=== PATIENT | male | born 1985 | race Two or more races ===

== ENCOUNTER 2019-09-10 11:14 | Emergency (ER) | payer OTHER, BC ==
[~2019-09-10] VITALS: Ht 180.3 cm; Wt 93.0 kg
[2019-09-10] MEDS ORDERED: ACETAMINOPHEN 325 MG TAB PO ONE ×2 (11:51→12:00)
[2019-09-10 14:27] VITALS: BP 119/75
[2019-09-10] MEDS ORDERED: KETOROLAC TROMETH 60MG/2ML VIAL IM ONE (15:00)
[2019-09-10] MEDS ORDERED: METHOCARBAMOL 500 MG TAB PO ONE (15:00)
== END 2019-09-10 15:26 | disposition home or self-care (01) ==
LOC: ER 11:14
DX: M62.838 Other muscle spasm (principal); R07.0 Pain in throat; R42 Dizziness and giddiness; M25.562 Pain in left knee
CPT/HCPCS: 70450; 72125; 73562; 96372; 99284; J1885